=== PATIENT | female | born 1945 | race Caucasian/White ===

== ENCOUNTER 2018-07-11 07:05 | Day surgery (SDC) | payer MEDICARE, OTHER ==
[~2018-07-11 07:05] MED LIST: Lidocaine 2% 5 ML SDV ONE; Midazolam 1 MG/ML 2 ML SDV ONE; Propofol 200 MG/20 ML SDV ONE; fentaNYL 100 MCG/2 ML SDV ONE
[2018-07-11] MEDS ORDERED: EPINEPHrine 1:10,000 1 MG/10 ML Syringe ONE (07:19)
[2018-07-11] MEDS: Lactated Ringers 1,000 ML IV SCH (07:30)
[2018-07-11] MEDS ORDERED: Propofol 200 MG/20 ML SDV IV ONE (08:14)
[2018-07-11] MEDS ORDERED: fentaNYL 100 MCG/2 ML SDV IV ONE (08:14)
[2018-07-11] MEDS ORDERED: Midazolam 1 MG/ML 2 ML SDV IV ONE (08:14)
[2018-07-11] MEDS ORDERED: Lidocaine 2% 5 ML SDV IV ONE (08:14)
[2018-07-11] MEDS ORDERED: Sodium Chloride 0.9% 5 ML Syringe FLUSH PRN (09:00)
--- NOTE | 2018-07-11 09:17 | PCM.PRNOTE ---
- Free Text/Narrative Note: PROCEDURE PERFORMED: Esophagogastroduodenoscopy PRE-PROCEDURE DIAGNOSIS/INDICATION FOR PROCEDURE: Hx gastric ulcer CONSENT: Informed consent was obtained prior to the procedure after discussion of the risks (including pain, bleeding, infection, perforation, adverse reaction to anesthesia, cardiovascular event), benefits and alternatives and expected outcomes. Verbal consent given and consent form signed. PROCEDURAL PAUSE: Completed SEDATION: Per anesthesia DESCRIPTION OF PROCEDURE: Patient was brought back to the operating room and placed in a left lateral decubitus position. Bite block placed. After adequate sedation and anesthetic was administered, endoscope was inserted into the patient's mouth and was passed easily through the esophagus and stomach into the duodenum without difficulty. Examined duodenum normal appearing. Pylorus normal appearing. Stomach, including viewing in retroflexion, without ulcer, mass, or bleeding; [address] in the cardia without surrounding abnormality noted. 5cm hiatal hernia was present with the gastroesophageal junction at 36cm from the incisors. Esophagus normal appearing. The scope was removed without difficulty. Patient tolerated the procedure well. No complications. IMPRESSION: Esophagogastroduodenoscopy performed revealing 5cm hiatal hernia and no residual gastric ulcer with clips in place. No biopsies taken. PLAN: Continue PPI BID. --- PROCEDURE PERFORMED: Colonoscopy PRE-PROCEDURE DIAGNOSIS/INDICATION FOR PROCEDURE: 04/04/13 colonoscopy with tubular adenoma CONSENT: Informed consent was obtained prior to the procedure after discussion of the risks (including pain, bleeding, infection, perforation, missed polyps, adverse reaction to anesthesia, cardiovascular event), benefits and alternatives and expected outcomes. The patient expressed understanding and wished to proceed. Verbal consent given and consent form signed. PROCEDURAL PAUSE: Completed SEDATION: Per anesthesia DESCRIPTION OF PROCEDURE: Patient was placed in the left lateral decubitus position. After adequate sedation and anesthetic was administered, a rectal exam was performed revealing mild external hemorrhoids. A lubricated Olympus Video Colonoscope was inserted into the rectum and air insufflation was performed. The colonoscope was advanced through the rectum, sigmoid, descending, transverse, and ascending colon without difficulties. The cecum was reached and the ileocecal valve as well as the appendiceal orifice were identified and pictorially documented. After adequate visualization of the cecum, the scope was withdrawn, giving 360- degree views of the colonic mucosa and retroflexion was performed in the rectum with the following findings noted: Ileocecal valve: Normal Cecum: Normal Ascending colon: Normal Hepatic flexure: Normal Transverse colon: Normal Splenic flexure: Normal Descending colon: 2mm polyp at 55cm removed with cold forceps with subsequent adequate removal and hemostasis noted Sigmoid colon: Normal Rectum: Normal The scope was straightened, air suction performed, and the scope withdrawn without complication. Preparation adequacy excellent. IMPRESSION: Colonoscopy performed revealing one small polyp, pathology now pending, and external hemorrhoids. PLAN: Will contact the patient when pathology results received with recommendation for repeat colonoscopy. Encourage increased fiber diet and bowel regimen to ensure 1-2 soft bowel movements per day.
[2018-07-11 10:30] VITALS: BP 124/85
== END 2018-07-11 10:30 | disposition home or self-care (01) ==
LOC: KA.SDS 07:05
PROVIDERS: ATTEND Family Medicine
DX: Z12.11 Encounter for screening for malignant neoplasm of colon (principal); K63.5 Polyp of colon; K64.4 Residual hemorrhoidal skin tags; K44.9 Diaphragmatic hernia without obstruction or gangrene; B37.81 Candidal esophagitis; K22.2 Esophageal obstruction; I10 Essential (primary) hypertension; E78.5 Hyperlipidemia, unspecified; E66.9 Obesity, unspecified; Z68.35 Body mass index [BMI] 35.0-35.9, adult; Z79.899 Other long term (current) drug therapy; Z98.890 Other specified postprocedural states
CPT/HCPCS: 00813; J2250; J2704; J3010; J7120